=== PATIENT | female | born 1995 | race Caucasian/White ===

== ENCOUNTER 2016-07-30 21:58 | Emergency (ER) | payer OTHER ==
[~2016-07-30] VITALS: Ht 162.6 cm; Wt 73.5 kg
[~2016-07-30 21:58] MED LIST: MOTRIN400 MG; PRENATAL VITAMI PO; PRENAVITE1 TA4; TYLENOL325 MG
[2016-07-30 22:12] VITALS: BP 130/80
--- NOTE | 2016-07-30 22:26 | NUR ---
TO ER BED 4
--- NOTE | 2016-07-30 22:42 | NUR ---
20/F BIB FAMILY C/O JOINT PAIN x 2 WEEKS. DENIES N/V/D; SKIN IS PINK/WARM/DRY; AAOX4 WITH EVEN AND STEADY GAIT; LUNGS CLEAR BL; HR EVEN AND REGULAR; PT DENIES ANY FEVER, CP, SOB, OR COUGH AT THIS TIME; PATIENT STATES PAIN OF 7/10 AT THIS TIME; VSS; PATIENT POSITIONED FOR COMFORT; HOB ELEVATED; BEDRAILS UP X2; BED DOWN. ER MD MADE AWARE OF PT STATUS.
[2016-07-30] MEDS ORDERED: KETOROLAC 30 MG/ML VIAL IM ONE (23:00)
[2016-07-30 23:54] VITALS: BP 125/75
--- NOTE | 2016-07-30 23:54 | NUR ---
Patient discharged with v/s stable. Written and verbal after care instructions given and explained. Patient alert, oriented and verbalized understanding of instructions. Ambulatory with steady gait. All questions addressed prior to discharge. ID band removed. Patient advised to follow up with PMD. Rx of NAPROSYN 500 MG given. Patient educated on indication of medication including possible reaction and side effects. Opportunity to ask questions provided and answered.
== END 2016-07-30 23:54 | disposition home or self-care (01) ==
LOC: MED 21:58
DX: M79.1 Myalgia (principal); G43.909 Migraine, unspecified, not intractable, without status migrainosus; Z88.6 Allergy status to analgesic agent
CPT/HCPCS: 36415; 80048; 81002; 81025; 96372; 99283; J1885

== ENCOUNTER 2020-04-08 10:28 | Emergency (ER) | payer OTHER ==
[~2020-04-08] VITALS: Ht 161.3 cm; Wt 85.4 kg
[2020-04-08 10:32] VITALS: BP 122/78
--- NOTE | 2020-04-08 10:43 | NUR ---
Patient ambulated with stready gait to bed 7.
[2020-04-08] MEDS ORDERED: DICYCLOMINE HCL LIQUID 20 MG, ALUMINUM HYD/MAG/SIMETHICONE 30 ML, LIDOCAINE VISCOUS 2% ... PO ONE ×3 (10:50)
[2020-04-08] MEDS ORDERED: NACL 0.9% 1,000 ML IV SCH (10:50)
[2020-04-08] MEDS ORDERED: PROCHLORPERAZINE 10 MG/2 ML VIAL IVP ONE (10:50)
--- NOTE | 2020-04-08 10:50 | NUR ---
PATIENT PRESENTS TO ED WITH C/O MID ABDOMEN PAIN X 3 WEEKS. . PT STATES LMP = 02/13/20. PT STATES (+) AND IS [id number] . DENIES N/V/D; SKIN IS PINK/WARM/DRY; AAOX4 WITH EVEN AND STEADY GAIT; LUNGS CLEAR BL; HR EVEN AND REGULAR; PT DENIES ANY FEVER, CP, SOB, OR COUGH AT THIS TIME; PATIENT STATES PAIN OF 1/10 AT THIS TIME; VSS; PATIENT POSITIONED FOR COMFORT; HOB ELEVATED; BEDRAILS UP X2; BED DOWN. ER MD MADE AWARE OF PT STATUS.
[2020-04-08 11:04] LABS: BASOPHILS % (AUTO) 0.4 % (0.0-2.0); EOSINOPHILS % (AUTO) 0.5 % (0.0-4.0); HEMATOCRIT 40.1 % (36-48); HEMOGLOBIN 13.7 g/dL (12.0-16.0); LYMPHOCYTES # (AUTO) 1.6 K/uL (2.5-16.5); LYMPHOCYTES % (AUTO) 16.3 % (20.5-51.1); MEAN CORPUSCULAR HEMOGLOBIN 30 pg (27-31); MEAN CORPUSCULAR HGB CONC 34 g/dL (33-37); MEAN CORPUSCULAR VOLUME 88.6 fL (80-94); MONOCYTES # (AUTO) 0.8 K/uL (0.8-1.0); NEUTROPHILS # (AUTO) 7.4 K/uL (1.8-7.7); NEUTROPHILS % (AUTO) 74.8 % (42.2-75.2); PLATELET COUNT (AUTO) 229 K/uL (140-450); RED BLOOD CELL COUNT(AUTO) 4.53 MIL/uL (4.20-5.40); RED CELL DISTRIBUTION WIDTH 12.7 % (11.6-13.7); WHITE BLOOD COUNT (AUTO) 9.9 K/uL (4.8-10.8)
[2020-04-08] MEDS ORDERED: DICYCLOMINE HCL LIQUID 10 MG/5 ML UDC ONE (11:15)
[2020-04-08] MEDS ORDERED: LIDOCAINE VISCOUS 2% 20 ML UDC ONE (11:15)
[2020-04-08] MEDS ORDERED: ALUMINUM HYD/MAG/SIMETHICONE 30 ML UDC ONE (11:15)
[2020-04-08 11:24] LABS: ALBUMIN 3.6 g/dL (3.4-5.0); ANION GAP 14.2 (8-16); CARBON DIOXIDE 24.6 mmol/L (21-32); CREATININE 0.6 mg/dL (0.6-1.3); POTASSIUM 3.8 mmol/L (3.5-5.1); TOTAL BILIRUBIN 0.3 mg/dL (0.0-1.0)
--- NOTE | 2020-04-08 12:29 | NUR ---
IV removed, catheter intact and site benign. Applied folded 2X2 gauze and secured with tape to stop bleeding. Patient tolerated well.
[2020-04-08 12:30] VITALS: BP 122/78
--- NOTE | 2020-04-08 12:30 | NUR ---
Patient discharged with v/s stable. Written and verbal after care instructions given and explained. Patient alert, oriented and verbalized understanding of instructions. Ambulatory with steady gait. All questions addressed prior to discharge. ID band removed. Patient advised to follow up with PMD. Rx of PYRIDOXINE given. Patient educated on indication of medication including possible reaction and side effects. Opportunity to ask questions provided and answered.
== END 2020-04-08 12:30 | disposition home or self-care (01) ==
LOC: MED 10:28
DX: O21.9 Vomiting of pregnancy, unspecified (principal); Z88.5 Allergy status to narcotic agent
CPT/HCPCS: 36415; 80053; 81002; 81025; 83690; 84702; 85025; 96361; 96374; 99284; J0780; J7030